=== PATIENT | female | born 2000 | race Two or more races ===

== ENCOUNTER 2024-11-10 18:07 | Emergency (ER) | payer MEDICAID, SELFPAY ==
[2024-11-10 18:16] VITALS: BP 140/80; PULSE 99; RESP 18; TEMP 37.2; O2SAT 98
--- NOTE | 2024-11-10 18:31 | EDNOTE_ITS ---
Upper Extremity Injury RME/HPI General Chief Complaint: Hand/Wrist Problems Stated Complaint: L) 3RD FINGERNAIL BENT BACK OFF NAIL BED Time Seen by Provider: 11/10/24 18:15 Arrival date/time: 11/10/24 18:07 24-year-old female presents to ED with a complaint of left middle finger nailavulsion. She states she was playing in the pool with her child and reached for the child striking her left hand against the wall. She has acrylic fingernails and caught the middle finger on the wall pulling the nail back and e xposing the nailbed. Mode of arrival: ambulatory Limitations: no limitations Related Data Home Medications ?Medication ?Instructions ?Recorded ?Confirmed vit no.95-ferrous 1 tab PO QDAY 12/29/23 07/0 08/26 fumarate 28 mg-folic acid 800 mcg tablet () Previous Rx's ?Medication ?Instructions ?Recorded ibuprofen 600 mg tablet 600 mg PO Q8H PRN pain #30 t abs 11/10/24 Allergies Allergy/AdvReac Type Severity Reaction Status Date / Time No Known Allergies Allergy Verified 11/10/24 18:10 Review of Systems Review of Systems Systems Reviewed: All systems reviewed, normal except as documented Past Medical History Surgical History SURGICAL: Negative Section ED Exam Narrative Physical exam: 24-year-old female in mild acute distress secondary to pain, left third digit with acrylic nail lifted dorsally and exposing the nailbed. She is tender in the proximal PIP and distal PIP areas. General Limitations: Present no limitations Course Course Course Narrative: She was given Motrin 600 mg. And a left hand/finger x-ray was obtained. XR left fingers reveals no acute fracture. Digital block of the left middle finger completed with lidocaine 1% without epinephrine. Good anesthesia obtained. Acrylic nail and patient's fingernail removed to expose nailbed for evaluation of nailbed laceration/injury. No nailbed laceration or injury noted. Patient's finger and nailbed were cleansed, antibiotic ointment applied, n onadherent dressing applied as well as 2 x 2 padding and tube gauze. Patient tolerated procedure well. She was discharged home in stable and improved condition. Quality Measures none Orders Category Date Time Status XR hand comp LT min 3V Stat Exams 11/10/24 18:32 Completed Ibuprofen Tab [Motrin Tab] Med 11/10/24 18:33 Discontinued 600 mg PO X1 ONE Vital Signs Vital signs: Vital Signs Temperature 98.9 F 11/10/24 18:16 Pulse Rate 99 11/10/24 18:16 Respiratory Rate 18 11/10/24 18:16 Blood Pressure 140/80 H 11/10/24 18:16 Pulse Oximetry (%) 98 11/10/24 18:16 Oxygen Delivery Method Room Air 11/10/24 18:16 Procedures -ED Procedure Comment Digital block of the left middle finger completed with lidocaine 1% without epinephrine. Good anesthesia obtained. Acrylic nail and patient's fingernail removed to expose nailbed for evaluation of nailbed laceration/injury. No nailbed laceration or injury noted. Patient's finger and nailbed were cleansed, antibiotic ointment applied, nonadherent dressing applied as well as 2 x 2 padding and tube gauze. Extremity Injury MDM Narrative MDM Narrative:: 24-year-old female presents to ED with a complaint of left middle finger nailavulsion. She states she was playing in the pool with her child and reached for the child striking her left hand against the wall. She has acrylic fingernails and caught the middle finger on the wall pulling the nail back and exposing the nailbed. 24-year-old female in mild acute distress secondary to pain, left third digit with acrylic nail lifted dorsally and exposing the nailbed. She is tender in the proximal PIP and distal PIP areas. She was given Motrin 600 mg. And a left hand/finger x-ray was obtained. XR left fingers reveals no acute fracture. Digital block of the left middle finger completed with lidocaine 1% without epinephrine. Good anesthesia obtained. Acrylic nail and patient's fingernail removed to expose nailbed for evaluation of nailbed laceration/injury. No nailbed laceration or injury noted. Patient's finger and nailbed were cleansed, antibiotic ointment applied, nonadherent dressing applied as well as 2 x 2 padding and tube gauze. Patient tolerated procedure well. She was discharged home in stable and improved condition. Patient data External records reviewed:: None Clinical information provided by:: patient Social determinants that could affect healthcare access:: none Patient has the following chronic illnesses:: N/A How is presenting disease/condition affected by chronic disease/condition?: no chronic disease Evaluation data The following diagnostics were reviewed and interpreted by me:: radiology exam(s) Lab and/or radiology exams considered but not ordered:: N/A Interpretation Summary: As noted above Medications / Prescriptions Medications or Prescriptions considered but not ordered:: N/A Medication administrations:: Medication Administration History Discontinued Medications Ibuprofen (Ibuprofen Tab 600 Mg Tablet) 600 mg PO X1 ONE Stop: 11/10/24 18:34 Last Admin: 11/10/24 18:50 Dose: 600 mg Documented By: KF As noted above Consultations Consultation(s) initiated? (list below): No Diagnosis Upper Extremity Injury Differential Diagnosis: finger sprain, dislocation of finger and other (Nail avulsion) Most likely diagnosis given after review of the tests above:: Nail avulsion without nailbed injury. Admission Indicated Admission indicated?: not indicated Explain why admission is indicated or not indicated:: The patient is stable for discharge Admission Request Was there a request for admission?: No Disposition Plan Disposition Plan: Discharge Discharge Attestation Discharge Attestation: The patient and all family members were given an opportunity to ask questions and understood the discharge instructions. Discharge instructions specifically effects, indications for sooner follow up or return to the emergency department, and the expected course of current diagnosis. Patient condition: Stable Discharge Plan Plan Patient Disposition: HOME (Self Care) Discharge Disposition comment: Stable and improved Prescriptions/Referrals Prescriptions/Med Rec: New ibuprofen 600 mg tablet 600 mg PO Q8H PRN (Reason: pain) Qty: 30 0RF No Action PNV cmb#95-ferrous fumarate-FA [] 28 mg iron- 800 mcg Tablet 1 tab PO QDAY Referrals: Sharla Redmond MD [Primary Care Provider] - In 1 week Problem List Clinical Impression: Avulsion of fingernail of left hand Patient/Caregiver Discharge Instructions Education Materials: ED Detached Fingernail or Toenail Additional Instructions: Follow-up with your primary care physician in 24 to 48 hours. Return to the ED for any new or worsening symptoms. Print Language: Czech Stand Alone Forms: Ricarda Award Info., Patient Portal Info Letter PA/STRUCTURAL WELDER Supervising Physician PA/STRUCTURAL WELDER Supervising Physician: Dr Goff
--- NOTE | 2024-11-10 18:32 | XR_ITS ---
Examination: Hand, left 3 views Technique: Hand AP, oblique, lateral 3 views Date and time of exam: November 10, 2024 1842 hours INDICATIONS: Injury to the hand today with her digit pain. FINDINGS: Avulsion of the nail bed third digit No acute fracture No foreign body. IMPRESSION: No acute fracture
[2024-11-10] MEDS: IBUPROFEN TAB 600 MG TABLET PO (18:50)
== END 2024-11-10 21:16 | disposition home or self-care (01) ==
PROVIDERS: Emergency Provider Emergency Medicine; PCP Obstetrics & Gynecology
DX: S61.303A Unspecified open wound of left middle finger with damage to nail, initial encounter (principal); X50.1XXA Overexertion from prolonged static or awkward postures, initial encounter
CPT/HCPCS: 73130; 99283; A9270